=== PATIENT | female | born 1955 | race Two or more races ===

== ENCOUNTER 2018-02-04 12:58 | Emergency (ER) | payer OTHER ==
[~2018-02-04] VITALS: Ht 157.5 cm; Wt 102.1 kg
--- NOTE | 2018-02-04 13:10 | NUR ---
Dr Valadez at the bedside for MSE.
[2018-02-04] MEDS ORDERED: MORPHINE SULFATE 4 MG/1 ML DISP.SYRIN IM ONE (13:15)
[2018-02-04] MEDS ORDERED: MORPHINE SULFATE 4 MG/1 ML DISP.SYRIN ONE (13:22)
[2018-02-04] MEDS ORDERED: MORPHINE SULFATE 2 MG/1 ML DISP.SYRIN ONE (13:22)
[2018-02-04] MEDS ORDERED: LOSA1TAB39 PO (13:27)
[2018-02-04] MEDS ORDERED: DICL50TA9 PO (13:27)
[2018-02-04] MEDS ORDERED: ACET-73 PO (13:27)
[2018-02-04] MEDS ORDERED: IBUP-1957 PO (13:27)
--- NOTE | 2018-02-04 13:40 | NUR ---
Pt state feeling better and her knee pain mostly gone, wishing to go home.
[2018-02-04 13:41] VITALS: BP 125/94
--- NOTE | 2018-02-04 13:49 | NUR ---
Patient discharged to home in stable conditon. Written and verbal after care instructions given. Patient verbalizes understanding of instructions.
== END 2018-02-04 13:49 | disposition home or self-care (01) ==
LOC: ER 13:03
DX: M19.072 Primary osteoarthritis, left ankle and foot (principal); M19.071 Primary osteoarthritis, right ankle and foot; I10 Essential (primary) hypertension
CPT/HCPCS: A4663; J2270